=== PATIENT | female | born 1980 | race Caucasian/White ===

== ENCOUNTER → 2020-09-18 | Outpatient (CLI) | payer BC ==
[2005-01-04 07:18] VITALS: TEMP 98.2
== END ==
LOC: MC.RAD 13:00
DX: N63.10 Unspecified lump in the right breast, unspecified quadrant (principal); R92.8 Other abnormal and inconclusive findings on diagnostic imaging of breast

== ENCOUNTER 2023-04-25 05:26 | Day surgery (SDC) | payer BC ==
[~2023-04-25 05:26] MED LIST: CEFTIN 250250 MG/TAB PO; LEXAPRO20 MG PO; MAGNESIUM250 M1 PO; ONE-A-DAY WOMEN1 TAB PO; OSCAL 500 TAB500 MG PO; PROTONIX 40MG T40 MG PO; PROVENTIL0.09 MG/A1 IH; RT Albuterol HFA MDI IH
[2023-04-25 07:49] VITALS: BP 112/72; PULSE 76; TEMP 97.7
--- NOTE | 2023-04-25 07:49 | NUR ---
0749PATIENT RETURNS TO ROOM 8 VIA CART. PATIENT IS LETHARGIC, BUT ALERTS TO VERBAL STIMULI. RESPIRATIONS EVEN AND UNLABORED, ON ROOM AIR. VITAL SIGNS OBTAINED. DRESSING AND BOOT PRESENT TO RIGHT FOOT. CDI. PATIENT IS ABLE TO MOVE TOES, BUT HAS NO FEELING TO RLE. PEDAL PULSES PALPABLE TO BLE. SKIN COLOR AND TEMPERATURE NORMAL FOR SKIN TONE. PATIENT STATES THAT SHE DOES NOT HAVE ANY PAIN RIGHT NOW. PATIENT STATES THAT SHE WOULD LIKE SOME GRAPE JUICE. PATIENT TOLERATED WELL. PATIENT DAUGHTER IN ROOM. 0810 THIS NURSE DISCONTINUED IV FROM LEFT HAND WITH NO COMPLICATIONS. IV CATHETER INTACT. 0815 THIS NURSE REVIEWED DISCHARGE INSTRUCTIONS WITH PATIENT AND PATIENT DAUGHTER. BOTH VERBALIZED UNDERSTANDING. 0825 PATIENT DISCHARGED FROM UNIT VIA WHEELCHAIR IN STABLE CONDITION. DRESSING TO RLE IS CDI.
[2023-04-25 08:05] VITALS: BP 116/77; PULSE 63
== END 2023-04-25 08:25 | disposition home or self-care (01) ==
LOC: SDCO 05:26
DX: M21.611 Bunion of right foot (principal); K21.9 Gastro-esophageal reflux disease without esophagitis; Z79.899 Other long term (current) drug therapy
CPT/HCPCS: C1713; J0665; J0690; J2704; J3010; J7120